=== PATIENT | male | born 1985 | race African-American/Black ===

== ENCOUNTER 2017-10-19 05:05 | Emergency (ER) | payer SELFPAY ==
[2017-10-19] MEDS ORDERED: LR(*) 1000 ML BAG 2,000 ML ONE ×2 (05:28→06:02)
[2017-10-19 05:29] LABS: INR 1.13; PLATELET COUNT, AUTOMATED 317 K/uL (150-450)
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
[2017-10-19] MEDS ORDERED: NS 0.9% 25 ML BAG 50 ML ONE (05:44)
[2017-10-19] MEDS ORDERED: IOPAMIDOL 76% 75 ML INFUS BTL 75 ML ONE (05:44)
[2017-10-19] MEDS ORDERED: PIPERACILLIN/TAZO* 4.5 GM VIAL 4.5 GM in NS(*) 0.9% 100 ML ADDVANT BAG 100 ML IVPB ONE (05:50)
[2017-10-19] MEDS ORDERED: fentaNYL CITR 100 MCG/2 ML AMP IVP ONE (06:05)
[2017-10-19] MEDS ORDERED: MIDAZOLAM IV ONE ×2 (06:25→06:26)
[2017-10-19] MEDS ORDERED: NS(*) 0.9% 100 ML BAG 100 ML ONE (06:27)
[2017-10-19] MEDS ORDERED: DIPHTH/TETANUS/ACEL. PERTUSSIS IM ONLY ONE (06:55)
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
[2017-10-19 07:57] VITALS: BP 145/74
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
[2017-10-19] MEDS ORDERED: LR(*) 1000 ML BAG 1,000 ML ONE (08:22)
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
--- NOTE | 2017-10-21 08:09 | EKG ---
FACILITY: [facility] - [place] PATIENT NAME: ARELY CABRALES : [id number] MR: [id number] V: [id number] EXAM DATE: ORDERING PHYSICIAN: WILLIAM BLAKE TECHNOLOGIST: LLUVIA Mina Reason : Blood Pressure : / mmHG Vent. Rate : 128 BPM Atrial Rate : 128 BPM P-R Int : 156 ms QRS Dur : 086 ms QT Int : 296 ms P-R-T Axes : 066 071 055 degrees QTc Int : 432 ms Sinus tachycardia No ST-T abnormalities, except V2 has a wandering baseline, so difficult to interpret No previous ECGs available Confirmed by RENEA HIGH ([id number]) on 10/21/2017 3:47:12 PM Referred By: HAYDEN Confirmed By:RENEA HIGH
== END 2017-10-19 08:30 | disposition short-term general hospital (02) ==
LOC: MERGE 05:17 → ER 05:17
DX: S21.112A Laceration without foreign body of left front wall of thorax without penetration into thoracic cavity, initial encounter (principal); S11.90XA Unspecified open wound of unspecified part of neck, initial encounter; S01.81XA Laceration without foreign body of other part of head, initial encounter; S61.512A Laceration without foreign body of left wrist, initial encounter; S52.615B Nondisplaced fracture of left ulna styloid process, initial encounter for open fracture type I or II; X99.1XXA Assault by knife, initial encounter
CPT/HCPCS: 31500; 33010; 36430; 36556; 70450; 70498; 71045; 71260; 72129; 72132; 73110; 74177; 80305; 80320; 81001; 82150; 83605; 83690; 85025; 85610; 85730; 86850; 86900; 86901; 86920; 90471; 90715; 93005; 93308; 93325; 94002; 96374; 99291; 99292; A7048; C1758; J2543; J3010; J7050; L0172; P9016; P9017; Q9967; 82040; 82247; 82310; 82374; 82435; 82565; 82947; 84075; 84132; 84155; 84295; 84450; 84460; 84520

== ENCOUNTER → 2017-10-19 | Outpatient (REF) ==
[~2017-10-19] MED LIST: ACE325 PO; CEP500 PO; CLO1 PO; CLO5 PO; DIVA-1 PO; HYDR-3140 PO; LOR5/325 PO; MULT-859 PO; NO MEDS; OXC300 PO
== END ==
LOC: AMB 07:23
PROVIDERS: ATTEND Nurse Practitioner
DX: Z02.9 Encounter for administrative examinations, unspecified (principal)

== ENCOUNTER 2018-06-19 10:47 | Emergency (ER) | payer SELFPAY ==
--- NOTE | 2018-06-19 10:57 | ER Report ---
History and Physical Time Seen By MD: 10:54 Hx. of Stated Complaint: PATIENT STARTED GETTING SICK SUNDAY. HAS MULTIPLE FRIENDS THAT HAVE THE FLU. HPI/ROS CHIEF COMPLAINT: Flulike symptoms HISTORY OF PRESENT ILLNESS: 32 O male been having a nonproductive cough general malaise and subjective fevers the last 3 or 4 days several his friends have influenza and his concern he may have as well no abdominal pain no chest pain or additional complaints noted REVIEW OF SYSTEMS: Respiratory: No cough, no dyspnea. Cardiovascular: No chest pain, no palpitations. Gastrointestinal: No vomiting, no abdominal pain. Musculoskeletal: No back pain. Remainder of the 14 system rev: Yes Allergies: Coded Allergies: No Known Drug Allergies (Unverified , 06/19/18) Home Meds Reported Medications Cephalexin Monohydrate (Keflex) 500 Mg Cap, 500 MG PO Q6H, #12 0 Refills Begin this afternoon. 07/25/08 Acetaminophen/Hydrocodone (Lortab 5/325 Mg) 5 Mg/325 Mg Tab, 1 - 2 EA PO Q4-6H PRN, #30 0 Refills may take next dose at 07/25/08 Hydrocodone Bit/Acetaminophen (Hydrocodone-Apap 5-500 Tab) 1 Each Tablet, 1 EACH PO Q6HPRN, 0 Refills 07/24/08 Reviewed Nurses Notes: Yes Old Medical Records Reviewed: Yes Hx Smoking: Yes (PAST) Hx Alcohol Use: Yes Constitutional Vital Sign - Last 24 Hours 06/19/18 10:51 Temp 98.9 Pulse 107 Resp 16 B/P (MAP) 165/110 Pulse Ox 90 O2 Delivery Room Air Physical Exam General Appearance: The patient is alert, has no immediate need for airway protection and no current signs of toxicity. [ ] Eyes: Pupils equal and round no injection. Respiratory: Chest is non tender, lungs are clear to auscultation. Cardiac: regular rate and rhythm [ ] Gastrointestinal: Abdomen is soft and non tender, no masses, bowel sounds normal. Musculoskeletal: Neck: Neck is supple and non tender. Extremities have full range of motion and are non tender. Skin: No rashes or lesions. [ ] DIFFERENTIAL DIAGNOSIS: After history and physical exam differential diagnosis was considered for influenza viral upper respiratory, cold Medical Decision Making Data Points Laboratory Hematology Test 06/19/18 10:56 Influenza Virus Type A (PCR) Positive (NEGATIVE) Influenza Virus Type B (PCR) Negative (NEGATIVE) Chemistry Test 06/19/18 10:56 Influenza Virus Type A (PCR) Positive (NEGATIVE) Influenza Virus Type B (PCR) Negative (NEGATIVE) ED Course/Re-evaluation ED Course 32-year-old male comes in with flulike symptoms is tested positive for influenza a 4 days and was cycled [id number] medications for symptomatically Decision to Disposition Date: Jun 19, 2018 Decision to Disposition Time: 11:40 Depart Departure Latest Vital Signs Vital Signs Date Time Temp Pulse Resp B/P (MAP) Pulse Ox O2 Delivery O2 Flow Rate FiO2 06/19/18 10:51 98.9 107 16 165/110 90 Room Air Impression: Primary Impression: Influenza A Condition: Improved Disposition: HOME OR SELF-CARE Patient Instructions: Influenza (DC) EBONIE BARRIOS MD Jun 19, 2018 10:57
[2018-06-19 11:40] VITALS: BP 152/88
== END 2018-06-19 11:50 | disposition home or self-care (01) ==
LOC: ER 10:51
DX: J09.X2 Influenza due to identified novel influenza A virus with other respiratory manifestations (principal)
CPT/HCPCS: 87502; 99282